=== PATIENT | male | born 1985 | race Caucasian/White ===

== ENCOUNTER → 2019-07-04 | Outpatient (CLI) | payer BC ==
--- NOTE | 2019-07-04 12:14 | XR ---
Left ankle HISTORY: Chronic pain 3 views the left ankle Bone mineralization, joint spaces and alignment are maintained. No evident arthropathy. IMPRESSION: No fracture or dislocation. Ankle MRI may be of benefit.
== END | disposition home or self-care (01) ==
LOC: RADXRYALE 11:44
PROVIDERS: ATTEND Physician Assistant Medical
DX: M25.572 Pain in left ankle and joints of left foot (principal)

== ENCOUNTER → 2021-12-19 | Outpatient (CLI) | payer BC ==
--- NOTE | 2021-12-19 12:17 | XR ---
EXAMINATION TYPE: XR shoulder complete RT DATE OF EXAM: 12/19/2021 CLINICAL HISTORY: pain TECHNIQUE: Three views of the right shoulder are obtained. COMPARISON: None FINDINGS: There is no acute fracture/dislocation evident. The acromioclavicular and glenohumeral cecille int spaces appear mildly narrowed. Postoperative change about the glenoid.. The visualized ribs are intact and unremarkable. IMPRESSION: 1. There is no acute fracture or dislocation. ICD 10 NO FRACTURE, INITIAL EVALUATION
--- NOTE | 2021-12-19 12:23 | XR ---
EXAMINATION TYPE: XR cervical spine limited DATE OF EXAM: 12/19/2021 CLINICAL HISTORY: pain TECHNIQUE: 3 views of the cervical spine are submitted. COMPARISON: None. FINDINGS: There is satisfactory in alignment without evidence of acute fracture or dislocation. The pre-vertebral soft tissue appears within normal limits.C5-6 degenerative change. The C1-C2 articulat ion is unremarkable on the open mouth view. IMPRESSION: No acute fracture or dislocation is seen in the cervical spine.
== END | disposition home or self-care (01) ==
LOC: RADXRYALE 10:26
PROVIDERS: ATTEND Physician Assistant
DX: M25.511 Pain in right shoulder (principal); M54.2 Cervicalgia
CPT/HCPCS: 72040

== ENCOUNTER → 2023-02-15 | Outpatient (CLI) | payer BC ==
--- NOTE | 2023-02-19 08:14 | CT ---
EXAMINATION TYPE: CT brain wo con CT DLP: 1004 mGycm, Automated exposure control for dose reduction was used. DATE OF EXAM: 02/15/2023 11:43 AM COMPARISON: None. CLINICAL INDICATION:Male, 38 years old with history of H53.10 UNSPECIFIED SUBJECTIVE VISUAL DISTURBAN JOSE R, left sided head pain/pressure TECHNIQUE: Brain: Axial CT images of the brain were obtained with coronal and sagittal reformats created and rev iewed. Contrast used: None. Oral contrast used: None. FINDINGS: Extra-axial spaces: No abnormal extra-axial fluid collections. Ventricular system: Within normal limits. Cerebral parenchyma: No increased attenuation to suggest acute intraparenchymal hemorrhage. The gra y-white matter interface appears maintained. No significant atrophy. White matter unremarkable by C T. Cerebellum: No acute abnormality. Mass effect: No evidence of mass effect or midline shift. Intracranial vasculature: Unremarkable Soft tissues: Normal. Visualized orbits: Orbital contents appear grossly intact. Calvarium/osseous structures: No evidence of calvarial fracture. Paranasal sinuses and mastoid air cells: Clear. Nasal septal deviation towards the right with small osseous spur. MRI is more sensitive for detecting acute processes such as infarct, and may be considered if clinica lly warranted. IMPRESSION: No acute intracranial CT abnormality.
== END | disposition home or self-care (01) ==
LOC: RADCTMAIN 11:29
PROVIDERS: ATTEND Family Medicine
DX: H53.10 Unspecified subjective visual disturbances (principal); R42 Dizziness and giddiness; R51.9 Headache, unspecified
CPT/HCPCS: 70450

== ENCOUNTER → 2024-04-24 | Outpatient (CLI) | payer BC ==
--- NOTE | 2024-04-24 10:51 | XR ---
EXAMINATION TYPE: XR thoracic spine complete DATE OF EXAM: 04/24/2024 10:28 AM COMPARISON: None. CLINICAL INDICATION: Male, 39 years old with history of [id number] PAIN, TECHNIQUE: Frontal, lateral, and swimmer's view of thoracic spine are obtained. FINDINGS: Thoracic spine show satisfactory alignment without evidence of acute fracture or dislocatio n. Vertebral body heights are preserved. Disc spaces are well preserved. Visualized ribs are unrem arkable. IMPRESSION: No acute fracture or dislocation is seen in the thoracic spine. ICD 10 NO FRACTURE, INIT IAL EVALUATION [facility], , 04/24/2024 10:49 AM
--- NOTE | 2024-04-24 10:52 | XR ---
EXAMINATION TYPE: XR cervical spine comp DATE OF EXAM: 04/24/2024 10:28 AM COMPARISON: None. CLINICAL INDICATION: Male, 39 years old with history of [id number],[id number],[id number] PAIN, TECHNIQUE: Frontal, lateral, oblique, swimmers, and open mouth view of the cervical spine are obtaine d. FINDINGS: The cervical spine is visualized in its entirety from C1 thru the top of T1 level. It is s atisfactory in alignment without evidence of acute fracture or dislocation. The pre-vertebral soft t issue appears within normal limits. Mild/moderate degenerative narrowing C5-6 and C6-7. The C1-C2 art iculation is unremarkable on the open mouth view. The oblique images are within normal limits. IMPRESSION: No acute fracture or dislocation is seen in the cervical spine.ICD 10 NO FRACTURE, INITI AL EVALUATION [facility], , 04/24/2024 10:50 AM
== END | disposition home or self-care (01) ==
LOC: RADXRYALE 09:55
PROVIDERS: ATTEND Physician Assistant Medical
DX: M54.13 Radiculopathy, cervicothoracic region (principal)
CPT/HCPCS: 72050; 72072